=== PATIENT | female | born 1990 | race African-American/Black ===

== ENCOUNTER 2024-05-24 19:57 | Emergency (ER) | payer OTHER ==
[2024-05-24 21:20] LABS: Absolute Lymphocytes (CBC) 2.3 K/uL (0.7-4.9); Absolute Monocytes 0.5 K/uL (0.1-1.3); Absolute Neutrophil 2.6 K/uL (1.8-8.0); Basophils % 0.6 % (0-1.3); Eosinophils % 0.9 % (0-4.4); Hematocrit 34.6 % (36.0-45.0); Hemoglobin 11.8 g/dL (12.0-15.0); Lymphocytes % 41.5 % (15.3-44.8); MCH 26.2 pg (27.0-35.0); MCHC 33.9 g/dL (32.0-36.0); MCV 77.4 fL (80-100); MPV 7.2 fL (7.6-11.3); Monocytes % 9.9 % (3.3-12.3); Neutrophils % 47.1 % (41.7-73.7); Nucleated Red Blood Cells % 0.1 % (0-0); Platelets 268 thou/uL (152-406); RBC Red Blood Cell Count 4.48 M/uL (3.86-4.86); Red Cell Distribution Width 16.6 % (12.1-15.2)
[2024-05-24 21:37] LABS: Specific Gravity < 1.005 (1.005-1.030); Sqamous Epithelial <5 /HPF (None Seen); Urine Bacteria None Seen /HPF (<20); Urine Bilirubin NEGATIVE (Negative); Urine Blood Negative (Negative); Urine Clarity Turbid (Clear); Urine Color Colorless (Yellow); Urine Culture Reflex Order NOT NEEDED; Urine Glucose NEGATIVE (Negative); Urine Ketones NEGATIVE (Negative); Urine Microscopic Reflex YN ORDER UMIC; Urine Nitrite NEGATIVE (Negative); Urine Protein NEGATIVE (Negative); Urine RBC <5 /HPF (None Seen); Urine Urobilinogen Normal (Normal); Urine WBC <5 /HPF (<5); Urine pH 6.5 (5.0-7.0)
[2024-05-24 21:38] LABS: Specific Gravity < 1.005 (1.005-1.030)
--- NOTE | 2024-05-24 21:50 | RAD REPORT ---
EXAM: 1St Trimest Single 1St Fetus HISTORY: VAGINAL BLEEDING COMPARISON: None TECHNIQUE: Multiple grayscale and color Doppler images were obtained in a transabdominal pelvic ultra sound. Spectral analysis of the Doppler waveforms of the ovaries were performed. FINDINGS: UTERUS: There is an intrauterine gestational sac. [place]-rump length: 3.6 cm which estimates gestational age at 9 week 2 day. A heart rate is detected at 171 bpm. Small subchorionic hemorrhage. No free fluid is seen in the pelvis. RIGHT OVARY: Nonvisualized. LEFT OVARY: Simple cyst measuring 3.3 cm. This does not require follow-up. Vascular flow is present i n the ovary. A corpus luteal cyst is also noted. IMPRESSION: Single live intrauterine with estimated age of 9 week 2 day. Small subchorionic hemorrhage which is typically of little significance.
[2024-05-24 21:59] LABS: Anion Gap 9.5 mEq/L (5.0-15.0); Potassium 3.5 mEq/L (3.5-5.1)
--- NOTE | 2024-05-24 22:10 | EDPHYS ---
Physician Documentation [facility] Name: Candace Pace Age: 33 yrs Sex: Female : 1990 Arrival Date: 05/24/2024 Time: 19:57 Bed 8 Private MD: ED Physician Titi Ac HPI: 05/24 20:50 This 33 yrs old Female presents to ER via Ambulatory with complaints of Vaginal cp Bleeding, EST 8 WKS GESTATION. 20:50 The patient presents to the emergency department with vaginal bleeding, described as cp spotting. 20:50 The estimated gestational age is 8 weeks. course: care: private OB cp physician, Ultrasound: the patient has not had an ultrasound. 20:50 Associated signs and symptoms: Pertinent negatives: abdominal pain. 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 It has been more than one year since last vaccine. - Infectious Disease History:: Denies. - Social history:: Smoking status: Patient denies any tobacco usage or history of. ROS: 20:55 : Positive for vaginal bleeding, described as spotting, Negative for urinary cp symptoms, 20:55 Abdomen/GI: Negative for abdominal pain, cp 20:55 Eyes: Negative for injury, pain, redness, and discharge, cp 20:55 Constitutional: Negative for body aches, chills, fever, poor PO intake, 20:55 Cardiovascular: Negative for chest pain, 20:55 Respiratory: Negative for cough, shortness of breath, wheezing, 20:55 Back: Negative for pain at rest, pain with movement, 20:55 Neuro: Negative for dizziness, headache, weakness, cp 20:55 All other systems are negative, Exam: 20:59 Constitutional: The patient appears in no acute distress, alert, awake, comfortable, cp well developed, well nourished, 20:59 Head/Face: Normocephalic, atraumatic. cp 20:59 Eyes: Periorbital structures: appear normal, Conjunctiva: normal, no exudate, no injection, Sclera: no appreciated abnormality, Lids and lashes: appear normal, bilaterally, 20:59 ENT: External ear(s): are unremarkable, Nose: is normal, Mouth: Lips: moist, Oral mucosa: moist, Posterior pharynx: Airway: no evidence of obstruction, patent, 20:59 Chest/axilla: Inspection: normal, 20:59 Cardiovascular: Rate: normal, 20:59 Respiratory: the patient does not display signs of respiratory distress, Respirations: normal, no use of accessory muscles, no retractions, labored breathing, is not present, Breath sounds: are clear throughout, no decreased breath sounds, no stridor, no wheezing, 20:59 Abdomen/GI: Inspection: abdomen appears normal, Palpation: abdomen is soft and non-tender, in all quadrants, 20:59 Back: pain, is absent, ROM is normal, Vital Signs: 20:14 BP 119 / 69; Pulse 83; Resp 16; Temp 97.3; Pulse Ox 100% ; Weight 92.99 kg; Pain 0/10; dd2 22:29 BP 118 / 64; Pulse 81; Resp 17; Pulse Ox 100% ; cp4 20:14 Pain Scale: Adult dd2 MDM: 20:24 Medical Screening Exam initiated cp 21:00 Differential diagnosis: ectopic , uti. cp 22:08 Data reviewed: vital signs, nurses notes, lab test result(s), radiologic studies, ultrasound, and as a result, I will discharge patient. 05/24 20:46 Order name: Abo/rh Typing; Complete Time: 21:58 cp 05/24 20:46 Order name: Basic Metabolic Panel; Complete Time: 22:01 cp 05/24 20:46 Order name: CBC with Diff; Complete Time: 21:58 cp 05/24 21:58 Interpretation: Normal except: HGB 11.8; HCT 34.6; MCV 77.4; MCH 26.2; RDW 16.6; MPV cp 7.2. 05/24 20:46 Order name: Test, Urine; Complete Time: 21:58 cp 05/24 21:58 Interpretation: Reviewed. cp 05/24 20:46 Order name: Quantitative Hcg; Complete Time: 22:01 cp 05/24 22:01 Interpretation: Reviewed. cp 05/24 20:46 Order name: Urinalysis w/ reflexes; Complete Time: 21:58 cp 05/24 21:58 Interpretation: Reviewed. cp 05/24 21:43 Order name: 1St Trimest Single 1St Fetus; Complete Time: 21:58 EDMS 05/24 21:59 Interpretation: Report reviewed. cp 05/24 20:46 Order name: IV Saline Lock; Complete Time: 21:09 cp 05/24 20:46 Order name: Labs collected and sent; Complete Time: 21:09 cp 05/24 20:46 Order name: NPO; Complete Time: 21:09 cp Administered Medications: No medications were administered Disposition Summary: 05/24/24 22:09 Discharge Ordered Notes: Location: Home cp Problem: new cp Symptoms: have improved cp Condition: Stable cp Diagnosis - Threatened cp Followup: cp - With: Private Physician - When: 1 week - Reason: Recheck today's complaints Discharge Instructions: - Discharge Summary Sheet cp - Care cp - Threatened Miscarriage cp - Vaginal Bleeding During , First Trimester cp - First Trimester of cp - Activity Restriction During cp Forms: - Medication Reconciliation Form cp - Antibiotic Education cp - Prescription Opioid Use cp - Patient Portal Instructions cp - Leadership Thank You Letter cp - Work release form cp4 Signatures: Dispatcher [employer] [facility] Titi Casas PA PA cp DAVIS, DIANA RN RN dd2 Corrections: (The following items were deleted from the chart) 20:17 20:16 PMHx: None; dd2 dd2 21:42 20:46 Transvaginal Ob+US.RAD.BRZ ordered. EDAR EDMS 05/25 19:11 05/24 20:50 4, Full Term 1, 2, Living 1, Verified cp cp
--- NOTE | 2024-05-24 22:10 | ER ---
Nurse's Notes [facility] Name: Candace Pace Age: 33 yrs Sex: Female : 1990 Arrival Date: 05/24/2024 Time: 19:57 Bed 8 Private MD: Diagnosis: Threatened Presentation: 05/24 20:14 Chief complaint: Patient states: PT REPORTS BEGAN SPOTTING BRIGHT RED BLOOD TODAY, 8 dd2 WEEKS . Coronavirus screen: At this time, the client does not indicate any symptoms associated with coronavirus-19. Ebola Screen: No symptoms or risks identified at this time. Initial Sepsis Screen: Does the patient meet any 2 criteria? No. Patient's initial sepsis screen is negative. Does the patient have a suspected source of infection? No. Patient's initial sepsis screen is negative. Risk Assessment: Do you want to hurt yourself or someone else? Patient reports no desire to harm self or others. Onset of symptoms was May 24, 2024. 20:14 Method Of Arrival: Ambulatory dd2 20:14 Acuity: IFEOMA 3 dd2 Triage Assessment: 20:16 General: Appears in no apparent distress. Behavior is calm, cooperative, appropriate dd2 for age. Pain: Denies pain. : Reports vaginal bleeding that is spotty. 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 It has been more than one year since last vaccine. - Infectious Disease History:: Denies. - Social history:: Smoking status: Patient denies any tobacco usage or history of. Screenin:[address] [facility] ED Fall Risk Assessment (Adult) History of falling in the last 3 months, cp4 including since admission No falls in past 3 months (0 pts) Confusion or Disorientation No (0 pts) Intoxicated or Sedated No (0 pts) Impaired Gait No (0 pts) Mobility Assist Device Used No (0 pt) Altered Elimination No (0 pt) Score/Fall Risk Level 0 - 2 = Low Risk Oriented to surroundings, Maintained a safe environment, Assessed \T\ reinforced patient's understanding of fall precautions. Abuse screen: Denies threats or abuse. Denies injuries from another. Nutritional screening: No deficits noted. Tuberculosis screening: No symptoms or risk factors identified. Assessment: 20:50 General: Appears in no apparent distress. comfortable, Behavior is calm, cooperative, cp4 appropriate for age. Pain: Denies pain. Neuro: Level of Consciousness is awake, alert, obeys commands, Oriented to person, place, time, situation. Cardiovascular: Patient's skin is warm and dry. Respiratory: Airway is patent Respiratory effort is even, unlabored. GI: No signs and/or symptoms were reported involving the gastrointestinal system. : Reports vaginal bleeding that is bright red, spotty. 20:50 EENT: No signs and/or symptoms were reported regarding the EENT system. Derm: No signs cp4 and/or symptoms reported regarding the dermatologic system. Musculoskeletal: No signs and/or symptoms reported regarding the musculoskeletal system. Vital Signs: 20:14 BP 119 / 69; Pulse 83; Resp 16; Temp 97.3; Pulse Ox 100% ; Weight 92.99 kg; Pain 0/10; dd2 22:29 BP 118 / 64; Pulse 81; Resp 17; Pulse Ox 100% ; cp4 20:14 Pain Scale: Adult dd2 ED Course: 19:59 Patient arrived in ED. [id number] 20:00 Titi Casas PA is PHCP. cp 20:00 Titi Ac MD is Attending Physician. cp 20:16 Triage completed. dd2 20:16 Arm band placed on right wrist. Patient placed in an exam room, on a stretcher, on dd2 pulse oximetry. 20:50 Grazyna Mo is Primary Nurse. cp4 20:50 Bed in low position. Call light in reach. Side rails up X 1. cp4 21:09 Inserted saline lock: 22 gauge in left antecubital area, using aseptic technique. Blood cp4 collected. Flushed with 10 mL NS. 21:43 1St Trimest Single 1St Fetus In Process Unspecified. EDMS 22:30 Provided Education on: vaginal bleeding. cp4 22:30 No provider procedures requiring assistance completed. intact, bleeding controlled, No cp4 redness/swelling at site. Pressure dressing applied. Administered Medications: No medications were administered Medication: 20:50 VIS not applicable for this client. cp4 Outcome: 22:09 Discharge ordered by . cp 22:30 Discharged to home ambulatory, cp4 22:30 Condition: stable 22:30 Discharge instructions given to patient, family, Instructed on discharge instructions, follow up and referral plans. Demonstrated understanding of instructions, follow-up care, 22:31 Patient left the ED. cp4 Signatures: Dispatcher [employer] EDMS iTti Casas PA PA cp Maritza Schafer Christina cp4 RULA LIU RN RN dd2 Corrections: (The following items were deleted from the chart) 20:17 20:16 PMHx: None; dd2 dd2
[2024-05-24 22:49] VITALS: TEMP 97.3; O2SAT 100
[2024-05-24 22:54] VITALS: BP 118/64
== END 2024-05-24 22:31 | disposition home or self-care (01) ==
LOC: ER 19:57
DX: O20.0 Threatened abortion (principal); Z3A.09 9 weeks gestation of pregnancy
CPT/HCPCS: 36415; 76801; 80048; 81001; 81025; 84702; 85025; 86900; 86901; 99284